=== PATIENT | female | born 1930 | race Caucasian/White ===

== ENCOUNTER 2019-07-15 19:26 | Inpatient (IN) ==
--- NOTE | 2019-07-15 20:23 | PROVIDER DOCUMENTATION ---
This chart was entered by Chaoy Gillette Scribe, acting as scribe for Lang Kelly MD. HPI-Musculoskeletal Pain/Inj - GENERAL Chief Complaint: Fall Stated Complaint: fall Time Seen by Provider: 07/15/19 19:52 Source: patient - HX OF PRESENT ILLNESS-MUSKULOSKELTAL Nature of Presenting Problem: pt is a 88 yr old female presenting via EMS post fall, pt reports she had been riding in backseat of car home from [facility] today, pt reports when she got out of the car she fell, does not know why she fell, denies any dizziness, no LOC, did not strike head. pt admits left hip pain, unable to stand after fall. pt denies any other pain or injury Quality of Pain: reports: throbbing Severity in ED: severe Onset/Duration: just prior to arrival Timing: still present Modifying Factors: improves with: movement (worsens pain), palpation (worsens pain) Any recent injury?: Yes Locality of Occurance: Home Similar Symptoms Previously?: No Recently seen or treated by another doctor?: No - FALL INJURY Location of Pain/Injury: reports: pelvis (left) Pain Radiation: reports: no radiation Reason for Fall: reports: unknown Symptoms prior to fall:: denies: chest pain, dizzy/lightheaded, headache Loss of Consciousness: no loss of consciousness Injury Associated Symptoms: reports: joint pain (left hip), unable to bear weight, trouble walking. denies: back/neck pain, sensory/motor loss, snap/crack/pop sensation - HIP/PELVIS PAIN/INJURY Hip Pain Location: reports: hip (L) Pain Radiation: reports: no radiation Context / Method of Injury: reports: fall Associated Symptoms: reports: denies symptoms Review of Systems - Adult - REVIEW OF SYSTEMS - ADULT Constitutional: reports: no symptoms reported Eyes: reports: no symptoms reported Ears, Nose, Mouth & Throat: reports: no symptoms reported Cardiovascular: denies: chest pain, palpitations, syncope Respiratory: denies: shortness of breath Gastrointestinal: denies: abdominal pain, nausea Genitourinary: reports: no symptoms reported Musculoskeletal: reports: joint pain (left hip). denies: back pain, neck pain Integumentary: reports: no symptoms reported Neurological: denies: dizziness/vertigo, headache/migraines, syncope Psychiatric: reports: no symptoms reported Endocrine: reports: no symptoms reported Hematologic/Lymphatic: reports: no symptoms reported Allergic/Immunologic: reports: no symptoms reported All Other Systems: Reviewed and Negative Past History - Adult - PAST MEDICAL HISTORY-ADULT Review of Records: reports: Old Records Reviewed, Nursing Assessment Review, Medications Reviewed, Social history reviewed & non-contributory. Major Childhood Illnesses: reports: denies history Cardiovascular: reports: HTN, hyperlipidemia Respiratory: reports: denies history Gastrointestinal: reports: denies history Obstetrical/Gynecological: reports: denies history Genitourinary: reports: denies history Musculoskeletal: reports: denies history Neurological: reports: denies history Endocrine/Immune: reports: denies history Other Conditions: reports: denies history - IMMUNIZATION STATUS Childhood Immunizations: See Nurse Assessment Flu Vaccine: See Nurse Assessment - FAMILY HISTORY Family History: reviewed, not pertinent - SOCIAL HISTORY Living Situation: family Physical Exam-Injury Related - Physical Exam-Injury Related Initial Vital Signs Reviewed: Yes General Appearance: alert, no apparent distress Progress - PLAN OF CARE/RESULTS Progress/Plan/Lab Results: Vital Signs - 8 hr 07/15/19 19:38 07/15/19 19:55 Temperature 97.5 F L Pulse Rate 71 72 Respiratory Rate 20 18 Blood Pressure 167/65 167/67 O2 Sat by Pulse Oximetry 100 95 Laboratory Results - last 24 hr 07/15/19 07/15/19 07/15/19 19:53 19:53 19:53 WBC 8.15 RBC 3.66 L Hgb 11.2 L Hct 35.4 L MCV 96.7 MCH 30.6 MCHC 31.6 L RDW Std Deviation 12.6 Plt Count 254 MPV 10.2 Immature Gran % (Auto) 0.2 Neut % (Auto) 51.1 Lymph % (Auto) 39.5 [place] % (Auto) 7.7 Eos % (Auto) 1.3 Baso % (Auto) 0.2 Immature Gran # (Auto) 0.02 Neut # (Auto) 4.15 Lymph # (Auto) 3.22 [place] # (Auto) 0.63 H Eos # (Auto) 0.11 Baso # (Auto) 0.02 PT 13.1 INR 0.98 PTT (Actin FS) 33.2 Sodium 136 Potassium 4.8 Chloride 99 Carbon Dioxide 23 L Anion Gap 14 BUN 25 H Creatinine 1.3 H Estimated GFR/1.73 m2 39 BUN/Creatinine Ratio 19 Glucose 108 H Calculated Osmolality 277 Calcium 10.6 H Total Bilirubin 0.26 AST 22 ALT 17 Alkaline Phosphatase 72 Total Protein 7.4 Albumin 4.4 Globulin 3.0 Albumin/Globulin Ratio 1.5 Orders Category Date Time Status CHEST-PORTABLE [RAD] Stat Exams 07/15/19 20:[address] HEAD W/O CONTRAST [CT] Stat Exams 07/15/19 20:08 Completed LUMBAR SPINE 2-VIEWS [RAD] Stat Exams 07/15/19 20:17 Completed XRAY HIP W/O PELVIS YOSELIN 3-4VWS [RAD] Stat Exams 07/15/19 20:15 Completed CBC WITH ELECTRONIC DIFF [HEME] Stat Lab 07/15/19 19:53 Completed COMPREHENSIVE METABOLIC PANEL [CHEM] Stat Lab 07/15/19 19:53 Completed PROTIME WITH INR [COAG] Stat Lab 07/15/19 19:53 Completed PTT [COAG] Stat Lab 07/15/19 19:53 Completed EKG [EKG] Stat Ther 07/15/19 20:08 Ordered Result Diagrams: 07/15/19 19:53 07/15/19 19:53 - XRAY 1 XRAY Study: Pelvis Impression: Abnormal, See EMR Report 2 XRAY Study: Chest Impression: Normal, See EMR Report - CT/MRI 1 CT Study: Head Impression: Abnormal (Signed EXAM: CT HEAD W/O CONTRAST 07/15/2019 HISTORY: fall TECHNIQUE: This exam was performed using automated exposure control, adjustment of mA or kV according to patient size, and/or use of iterative reconstruction technique. COMMENT: There is no evidence of mass effect, bleed, or abnormal extra-axial fluid collection. There are patchy l ucencies in the white matter of both hemispheres as well as small lacunae present in the basal ganglia region on the right. There are no previous studies available for comparison. Paranasal sinuses are clear. The calvarium is intact. IMPRESSION: Chronic ischemic microvascular changes. No evidence of acute intracranial disease. Electronically signed by Krunal Cardoso 07/15/2019 8:38 PM 07/15/192037 Interpreting Physician: Krunal Cardoso MD Dictated Date/Time: 07/15/192036 cc: Lang Kelly MD; Molly Pappas MD) - CONSULTS/PCP/HOSPITALIST Notification #1 *Consult/PCP/Hospitalist*: Dr Malik Time Discussed: 21:20 Consult Disposition: Admit #2 Consult: Dr Gayle Consult Disposition: Admit Departure - Departure Date of Disposition Decision: 07/15/19 Time of Disposition Decision: 21:16 DIAGNOSIS: Intertrochanteric fracture of left femur Disposition: ADMITTED INPATIENT 09 Certified Medical Emergency: Emergent Condition: Stable Referrals and Follow-Ups: Molly Pappas MD [Primary Care Provider] - - Critical Care Note This patient required my direct & personal management of CC.: No Attestation - Physician/ ROBERTA Attestation Patient care was provided by Advanced Practice Provider:: No The physician spent face to face time with patient:: Yes Advanced Practice Provider documentation review:: Supervising physician onsite and consulted in the evaluation and care of this patient. The physician did have a face to face encounter with the patient. This chart was documented by the indicated scribe, (Chayo Gillette Scribe) and accurately reflects the services I performed and decisions made by me, Lang Kelly MD, as attested by the provider's signature.
[2019-07-15 20:40] LABS: BASO# 0.02 X1000 (0.0-0.2); BASO% 0.2 % (0.0-0.8); EOS# 0.11 X1000 (0.0-0.7); EOS% 1.3 % (0.0-10.0); HEMATOCRIT 35.4 % (37.0-47.0); HEMOGLOBIN 11.2 g/dL (12.0-16.0); IMM GRAN# 0.02 X1000 (0.0-0.04); IMM GRAN% 0.2 % (0.0-0.5); LYMPH# 3.22 X1000 (1.2-3.4); LYMPH% 39.5 % (20.5-51.1); MCH 30.6 PG (27-31); MCHC 31.6 g/dL (33-37); MCV 96.7 FL (81-99); MONO# 0.63 X1000 (0.11-0.59); MONO% 7.7 % (1.7-9.3); MPV 10.2 FL (7.4-10.4); NEUT# 4.15 X1000 (1.4-6.5); NEUT% 51.1 % (42.2-75.2); PLT 254 X1000 (130-400); RBC 3.66 XMIL (4.2-5.4); RDW 12.6 % (11.5-14.5); WBC 8.15 X1000 (4.8-10.8)
--- NOTE | 2019-07-15 20:40 | Diag Imaging Result Doc PS360 ---
EXAM: CT HEAD W/O CONTRAST 07/15/2019 HISTORY: fall TECHNIQUE: This exam was performed using automated exposure control, adjustment of mA or kV according to patient size, and/or use of iterative reconstruction technique. COMMENT: There is no evidence of mass effect, bleed, or abnormal extra-axial fluid collection. There are patchy lucencies in the white matter of both hemispheres as well as small lacunae present in the basal ganglia region on the right. There are no previous studies available for comparison. Paranasal sinuses are clear. The calvarium is intact. IMPRESSION: Chronic ischemic microvascular changes. No evidence of acute intracranial disease. Electronically signed by Krunal Cardoso 07/15/2019 8:38 PM
[2019-07-15 20:47] LABS: INR 0.98; PROTIME 13.1 Seconds (11.0-16.0)
[2019-07-15 20:48] LABS: PTT 33.2 Seconds (22.3-41.8)
[2019-07-15 20:55] LABS: ALB/GLOB RATIO 1.5; ALBUMIN 4.4 g/dL (3.5-5.0); CALCIUM 10.6 mg/dL (8.8-10.2); CREATININE 1.3 mg/dL (0.5-0.9); POTASSIUM 4.8 mmol/L (3.5-5.1); TOTAL BILIRUBIN 0.26 mg/dL (0.20-1.00); TOTAL PROTEIN 7.4 g/dL (6.3-8.3)
--- NOTE | 2019-07-15 20:59 | Diag Imaging Result Doc PS360 ---
EXAM: XRAY HIP W/O PELVIS YOSELIN 3-4VWS 07/15/2019 HISTORY: fall TECHNIQUE: Four views COMMENT: There is some joint space narrowing and marked osteophyte formation in the femoral heads. Bone on bone contact is present laterally on the left. There is an apparent intertrochanteric fracture on the left. There is generalized osteopenia. There are severe degenerative disc changes at L4-5 and L5-S1. IMPRESSION: Left intertrochanteric fracture. 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 Electronically signed by Krunal Cardoso 07/15/2019 8:57 PM
--- NOTE | 2019-07-15 21:01 | Diag Imaging Result Doc PS360 ---
EXAM: CHEST-PORTABLE 07/15/2019 HISTORY: fall TECHNIQUE: AP portable at 2040 COMMENT: There is severe degenerative disc disease and scoliosis of the thoracolumbar spine with convexity to the left. There are calcified granulomata bilaterally. There is no evidence of acute pulmonary disease and compared to the previous study of 06/26/2016 considering differences in inspiration and technique there has been no significant change. IMPRESSION: No acute disease. Electronically signed by Krunal Cardoso 07/15/2019 8:59 PM
--- NOTE | 2019-07-15 21:03 | Diag Imaging Result Doc PS360 ---
EXAM: LUMBAR SPINE 2-VIEWS 07/15/2019 HISTORY: fall TECHNIQUE: Lumbosacral spine AP and lateral COMMENT: There is severe rotoscoliosis with degenerative disc changes at the thoracolumbar transition and convexity to the left. There is also severe degenerative disc disease at L4-5 and L5-S1. There is mild anterolisthesis of L4 on L5 which is presumably due to facet arthropathy. There is generalized osteopenia. There are no previous studies. IMPRESSION: Degenerative disc disease and scoliosis. No evidence of acute bony abnormality. Electronically signed by Krunal Cardoso 07/15/2019 9:01 PM
[2019-07-15] MEDS ORDERED: ZOFRAN IV ONE ×2 (21:42→22:35)
[2019-07-15] MEDS ORDERED: DILAUDID IV ONE (21:42)
--- NOTE | 2019-07-15 23:02 | HISTORY AND PHYSICAL ---
PRIMARY CARE PHYSICIAN: Dr. Pappas. CHIEF COMPLAINT: Fall. HISTORY OF PRESENTING ILLNESS: An 88-year-old female with a history of diabetes mellitus type 2, hypertension, hyperlipidemia and hypothyroidism. She was coming back from [place], and when she got to her garage she got out, and somehow she got weak and landed on the concrete, on her left hip region. She was brought to the emergency department. She had imaging done which did show a left intertrochanteric fracture. Her case was discussed with Orthopedics, who recommended admission for further management. At the time of my examination, the patient denied any headache, fever, chills, chest pain, shortness of breath, hemoptysis or melena, but complained of left hip pain. PAST MEDICAL HISTORY: Includes diabetes mellitus type 2, hypertension, hyperlipidemia, hypothyroidism and asthma. PAST SURGICAL HISTORY: Exploratory laparotomy, appendectomy, cataract surgery. ALLERGIES: Penicillin and Keflex. CURRENT MEDICATIONS: Levothyroxine 100 mcg p.o. daily; losartan 50 mg p.o. daily; metformin 500 mg p.o. daily; lovastatin 20 mg p.o. daily. SOCIAL HISTORY: No history of smoking, alcohol or illicit drug use. FAMILY HISTORY: Positive for coronary disease in her father. REVIEW OF SYSTEMS: Fourteen-point review of system is as listed in HPI. Other systems negative. PHYSICAL EXAMINATION: GENERAL: Cooperative, friendly elderly female. She is resting more comfortably now. VITAL SIGNS: Temperature 97.5 degrees, pulse 72, respirations 18, blood pressure 167/67. HEENT: Extraocular movements intact. PERRLA. NECK: No masses. CHEST: Clear to auscultation. CARDIOVASCULAR: Regular rate and rhythm. ABDOMEN: Soft. Positive bowel sounds. EXTREMITIES: Left hip region tenderness. NEUROLOGIC: She is awake, alert and oriented x2. GENITOURINARY: No bladder distention. SKIN: Warm. LABORATORY DATA: WBCs 8.15, hemoglobin 11.2, hematocrit 35.4, platelets 254,000. Sodium 136, potassium 4.8, chloride 99, CO2 is 23, BUN is 25, creatinine is 1.3, glucose 108. DIAGNOSTIC DATA: Hip x-ray shows left intertrochanteric fracture. ASSESSMENT: An 88-year-old female with a history of diabetes mellitus type 2, hypertension, hyperlipidemia and hypothyroidism. She presented to the emergency department with a 1-day history of having left hip region pain after a fall. She was evaluated in the emergency department. She had imaging done which did show a left intertrochanteric fracture. Subsequently, she will need admission for further management. 1. Status post a mechanical fall. 2. Left hip intertrochanteric fracture. 3. Diabetes mellitus type 2. 4. Hypertension. 5. Hypothyroidism. PLAN: 1. We will admit the patient to the medical floor with telemetry. 2. We will keep the patient NPO. Continue with pain control and antiemetics as needed. 3. Orthopedics has already been consulted. 4. We will monitor blood glucose and put the patient on sliding scale insulin regimen. 5. Monitor blood pressure. Resume antihypertensive agents. 6. Put the patient on DVT prophylaxis with SCDs. 7. We will continue to follow and reassess, and make further recommendations based on the patient's clinical course. cc: Ti Malik MD
[2019-07-16] MEDS: DILAUDID IV PRN ×3 (00:58→09:12)
[2019-07-16] MEDS: ZOFRAN IV PRN ×3 (00:58→20:58)
[2019-07-16] MEDS: NS 1,000 ML IV SCH (01:12)
--- NOTE | 2019-07-16 01:36 | EKG Report ---
Test Performed on : 07/16/2019 01:28:17 AM Test Reason : fall Blood Pressure : / mmHG Vent. Rate : 061 BPM Atrial Rate : 061 BPM P-R Int : 134 ms QRS Dur : 082 ms QT Int : 432 ms P-R-T Axes : 061 -03 050 degrees QTc Int : 434 ms Normal sinus rhythm. Normal ECG When compared with ECG of 26-JUN-2016 18:21, No significant change was found Unconfirmed Result
[2019-07-16 06:43] LABS: URINE SOURCE CATH
[2019-07-16 06:46] LABS: BILIRUBIN URINE NEGATIVE (NEGATIVE); BLOOD URINE SMALL (NEGATIVE); COLOR YELLOW; GLUCOSE URINE NEGATIVE (NEGATIVE); KETONE URINE NEGATIVE (NEGATIVE); LEUKOCYTES URINE SMALL (NEGATIVE); NITRITE URINE NEGATIVE (NEGATIVE); PH URINE 6.5; PROTEIN URINE TRACE mg/dL (NEGATIVE); SP GRAVITY URINE 1.014; TURBIDITY URINE CLEAR (CLEAR); UR EPITHELIAL CELLS <10 /HPF (<10); URINE BACTERIA NEGATIVE /HPF; URINE RBC 20-40 /HPF (<10); URINE WBC <10 /HPF (<10); UROBILINOGEN URINE NORMAL (NORMAL)
--- NOTE | 2019-07-16 06:48 | Diag Imaging Result Doc PS360 ---
CT PELVIS W/O CONTRAST - 07/15/2019 INDICATION: Left hip fracture COMPARISON: X-rays from earlier 07/15/2019 FINDINGS: There is a nondisplaced left intertrochanteric hip fracture. There is severe bilateral hip osteoarthritis. No dislocation. There is advanced degeneration of the lower lumbar spine. IMPRESSION: Acute nondisplaced left intertrochanteric hip fracture. This exam was performed using automated exposure control, adjustment of mA or kV according to patient size, and/or use of iterative reconstruction technique Electronically signed by Sreedhar Bellamy 07/16/2019 6:46 AM
[2019-07-16] MEDS ORDERED: CLINDAMYCIN 600 MG/NS 600 MG/50 ML IVPB IV ONE (06:52)
[2019-07-16] MEDS ORDERED: CLINDAMYCIN 600 MG/D5W 600 MG/50 ML IVPB IV ONE (07:05)
[2019-07-16 07:16] LABS: BASO# 0.02 X1000 (0.0-0.2); BASO% 0.2 % (0.0-0.8); EOS# 0.01 X1000 (0.0-0.7); EOS% 0.1 % (0.0-10.0); HEMATOCRIT 33.3 % (37.0-47.0); HEMOGLOBIN 10.8 g/dL (12.0-16.0); IMM GRAN# 0.02 X1000 (0.0-0.04); IMM GRAN% 0.2 % (0.0-0.5); LYMPH# 1.21 X1000 (1.2-3.4); LYMPH% 9.5 % (20.5-51.1); MCH 31.3 PG (27-31); MCHC 32.4 g/dL (33-37); MCV 96.5 FL (81-99); MONO# 0.69 X1000 (0.11-0.59); MONO% 5.4 % (1.7-9.3); MPV 10.2 FL (7.4-10.4); NEUT# 10.74 X1000 (1.4-6.5); NEUT% 84.6 % (42.2-75.2); PLT 213 X1000 (130-400); RBC 3.45 XMIL (4.2-5.4); RDW 12.4 % (11.5-14.5); WBC 12.69 X1000 (4.8-10.8)
[2019-07-16] MEDS: HUMULIN R SUBQ SCH ×4 (08:04→23:54)
[2019-07-16] MEDS: BREO ELLIPTA 100/25 MCG INH INH SCH (10:54)
[2019-07-16] MEDS ORDERED: DIPRIVAN 1% ONE (13:07)
[2019-07-16] MEDS ORDERED: ROBINUL ONE (13:08)
[2019-07-16] MEDS ORDERED: FENTANYL ONE (13:08)
[2019-07-16] MEDS ORDERED: XYLOCAINE-MPF 2% ONE (13:08)
[2019-07-16] MEDS ORDERED: NEO-SYNEPHRINE ONE (13:14)
--- NOTE | 2019-07-16 13:28 | ORTHOPAEDICS CONSULTATION ---
DATE: 07/16/2019 CHIEF COMPLAINT: Left hip pain after a fall. HISTORY OF PRESENTING ILLNESS: Ms. Damon is an 88-year-old female with a past medical history of diabetes mellitus type 2, hypertension, hyperlipidemia, and hypothyroidism, who was getting out of her car yesterday when she tripped and fell. She had pain to the left hip. She denied dizziness, lightheadedness, or loss of consciousness. She denies pain in any other extremity. She was brought to the emergency department at that time. X-rays done in the ER showed a left intertrochanteric fracture. Orthopedics was consulted for management of the fracture. PAST MEDICAL HISTORY: 1. Diabetes mellitus type 2. 2. Primary essential hypertension. 3. Hyperlipidemia. 4. Hypothyroidism. 5. Asthma. PAST SURGICAL HISTORY: 1. Exploratory laparotomy. 2. Appendectomy. 3. Cataract surgery. ALLERGIES: 1. Penicillin. 2. Keflex. CURRENT MEDICATIONS: 1. Synthroid 100 mcg p.o. daily. 2. Losartan 50 mg p.o. daily. 3. Metformin 500 mg p.o. daily. 4. Lovastatin 20 mg p.o. daily. SOCIAL HISTORY: Denies tobacco, alcohol, or illicit drug use. She does still live a home alone. She is still very active. She is a retired RN. FAMILY HISTORY: Noncontributory. REVIEW OF SYSTEMS: A 10-point review of systems was conducted and negative except what is mentioned above in the HPI. PHYSICAL EXAMINATION: Current Vital Signs: Her temperature is 98.6 degrees, her pulse is 71, respirations are 18, and blood pressure is 125/50, and she is 95% on room air. General: This is a very pleasant 88-year-old female in no acute distress. Neurological: She is alert and oriented x3 with no focal deficits. HEENT: Head is atraumatic, normocephalic. Pupils are equal, round, reactive to light. Cardiovascular: Regular rate and rhythm. Breathing is even and nonlabored. Equal chest expansion. Abdomen: Appears nondistended. Extremities: The left lower extremity is short and externally rotated. She does have good sensation to the foot. She has a 2+ pedal pulse. She has a cap refill of less than 2 seconds. She is able to dorsi and plantar flex the foot. She has no skin abrasions or ulcerations. She denies tenderness to any other extremity. LABORATORY DATA: Her white count is 8.15. Her hemoglobin is 11.2, hematocrit 35.4, platelets 254,000. Her sodium is 136, her potassium is 4.8. Her BUN is 25 and creatinine is 1.3. DIAGNOSTIC DATA: A hip film reviewed, interpreted by Dr. Gayle, does show a left intertrochanteric femur fracture that is nondisplaced. ASSESSMENT: Left intertrochanteric femur fracture. PLAN: We will plan for a trochanteric femoral nailing of this left hip today. We have discussed the procedure in depth with the patient. We have also discussed mortality rates of hip fractures in elderly population. She is a retired RN and understands. Her daughter is at the bedside. The risks and benefits of the procedure that were reviewed by Dr. Gayle are damage to nerves, arteries, veins, malunion, nonunion, hardware related issues, DVT, infection, poor wound healing, continued pain, and risk of general anesthesia. The patient understands and wished to proceed. She has been NPO since midnight. We will get consent signed today. We will plan on her doing at least a 21 day rehab stay as she lives at home alone. She is in agreement with this and thinks it is a good idea. We have also discussed osteoporosis medication postoperatively. She states Dr. Pappas, her primary care doctor, has prescribed her a medication for osteoporosis that she cannot recall the name. She has not started that yet. We will discuss this more postoperatively. We will plan to get this done today. Dictated by LAMONT Finney for Red Gayle MD cc: LAMONT Finney MD
[2019-07-16] MEDS ORDERED: D50W SYRINGE ONE (13:49)
[2019-07-16] MEDS ORDERED: KETAMINE ONE (14:35)
[2019-07-16] MEDS ORDERED: CALMOSEPTINE OINTMENT TOP PRN (14:49)
[2019-07-16] MEDS ORDERED: MARCAINE 0.5% PF ONE (15:00)
[2019-07-16] MEDS ORDERED: MORPHINE IV PRN (15:32)
[2019-07-16] MEDS ORDERED: ZOFRAN IV PRN (15:32)
[2019-07-16] MEDS ORDERED: MILK OF MAGNESIA PO PRN (15:32)
[2019-07-16] MEDS ORDERED: HALDOL IV PRN (15:32)
[2019-07-16] MEDS: TYLENOL PO SCH (19:46)
--- NOTE | 2019-07-16 21:11 | OPERATIVE NOTE ---
PROCEDURE DATE: 07/16/2019 PREOPERATIVE DIAGNOSIS: Left intertrochanteric femur fracture. POSTOPERATIVE DIAGNOSIS: Left intertrochanteric femur fracture. PROCEDURE: Closed reduction and intramedullary nailing of left intertrochanteric femur fracture. SURGEON: Red Gayle MD. BLOOD BANK BUSINESS MANAGER: Diana Neal, nurse practitioner, whose assistance was needed for reduction, retraction, and placement of implants. ANESTHESIA: Spinal anesthetic was attempted. However, they were unable to get it secondary to the patient's arthritis. General endotracheal anesthesia was thus used. COMPLICATIONS: None. SPECIMENS: None. DRAINS: None. BLOOD LOSS: 50 mL. IMPLANTS: Synthes TFN left-sided femoral head nail measuring 11 mm x 340 mm with an 80 mm helical blade and a 34 mm distal screw. INDICATIONS FOR PROCEDURE: Ms. Damon is an 88-year-old lady who presented to [facility] after sustaining a same-level fall. X-rays demonstrated an intertrochanteric femur fracture. Given these findings, Orthopedics was consulted. Given the fracture pattern, it was decided patient would best benefit from closed reduction and intramedullary nailing. Risks, benefits, alternative therapies were discussed with patient and family regarding surgery. Risks of surgery include, but are not limited to, risks of bleeding, infection, damage to nerves and vessels around the area, continued pain following surgery, malunion, nonunion, need for revision surgery. There is also a risk of anesthesia including blood clot, stroke, heart attack, even . The patient understands these risks. All questions were answered. Informed consent was obtained. PROCEDURE IN DETAIL: Ms. Damon was identified by wristband and greeted in preoperative holding area on 07/16/2019. Her left lower extremity which was the operative site was then marked with indelible ink per [facility] Sign Your Site protocol. Following this, the patient was transferred back to the operating room for surgery. Upon entering the OR, spinal anesthetic was attempted. However, they were unable to get this. The patient was thus intubated and general endotracheal anesthesia was used. Following this, she was transferred over to a [place] table in supine position. All bony prominences were well padded. Both feet were placed into well-padded boot holders on the [place] table. Fluoroscopy was then brought in confirming reduction of the fracture. Once this was done, left lower extremity was prepped and draped in routine sterile fashion. Formal time-out was performed confirming correct patient, procedure, operative site, operative side, administration of preoperative antibiotics. Everyone was in agreement. Patient received clindamycin prior to incision. A 10-blade knife was used to make a standard 3 cm longitudinal incision about 2 cm proximal to the greater trochanter. Knife was used to dissect through skin, subcutaneous fat, and fascia. The tip of the greater trochanter was then palpated. At this time, a guidewire was placed and we were satisfied with the starting point on both AP and lateral views. It was taken down to the level of the lesser trochanter. The entry reamer was then used to enter the canal. Once this was done, a ball-tipped guidewire was placed through the femur distally down to the knee. AP and lateral images of the knee were taken confirming good center-center placement of the wire. A measuring device was then used to measure the length of the nail, which was found to be 340 mm. At this time, we then proceeded with reaming the canal using a 12 mm reamer. A Synthes 11 x 340 mm TFN nail was then opened and assembled on the back table. The nail was then driven down in routine fashion. Once it was appropriately seated, our second, more distal incision was made using knife through skin, subcutaneous fat, and ITB band. The cannula for the cephalomedullary screw was then inserted and locked into position. At this time, we then drilled the guidewire up the femoral head. AP and lateral images were used to localize the wire and confirm its placement center- center in the head. When we were satisfied with the placement of this, it was then driven up to the subchondral bone and measured, which was found to be 87 mm. An 80 mm blade was thus opened. A drill was used to ream the lateral cortex. An 80 mm helical blade was then inserted in routine fashion. Once this was done, compression device was used to obtain some compression to help with reduction of the fracture. When we were satisfied with this, the locking screw was then taken down all the way and loosened half a turn to allow for dynamic compression. At this time, the aiming arm was removed and we turned our attention distally for perfect [place] technique to place 1 distal interlocking screw. A knife was used to make a poke hole incision on the lateral aspect of the distal femur and a single interlocking screw was placed in routine fashion. Once this was done, final AP and lateral images of the hip and knee were obtained confirming anatomic reduction of the fracture with good placement of the implants. At this time, all wounds were copiously irrigated with normal saline, and 2-0 Vicryl suture was used for subcutaneous tissue closure, followed by mike for skin closure. Wounds were then dressed with Xeroform, 4 x 4, and Telfa island dressing. All sponge and sharp counts were correct at the conclusion of the procedure. Next, 30 mL of 0.5% Marcaine plain was then injected around all incision sites. At this time, the patient was transferred over to hospital bed, extubated, and taken to Recovery in stable condition. There were no acute complications during the procedure. cc: Estuardo Pappas MD
--- NOTE | 2019-07-16 22:28 | PROGRESS NOTE ---
DATE: 07/16/2019 SUBJECTIVE: An 88-year-old white female who was admitted to the hospital last night 07/15/2019, after a fall at home, sustaining injury to the left side of the hip. REVIEW OF SYSTEMS: Pain is adequately controlled. Events were noted. Family was at bedside. PAST MEDICAL HISTORY: Reviewed. PAST SURGICAL HISTORY: Reviewed. MEDICINES: Reviewed. ALLERGIES: Cephalexin, penicillin. OBJECTIVE: Temperature is 98 degrees. Vital signs are stable. HEENT exam within normal limits. Neck is supple. Chest is clear. Heart sounds are regular. Belly is soft, nontender. Left lower extremity did not rotate externally. No shortening noted. Neurologic exam nonfocal. LABORATORY DATA: White cell count 12.6, hematocrit 33, platelets 213,000. SMA 12 is normal. Urinalysis is clear. DIAGNOSTIC DATA: Pelvic CT findings were acute nondisplaced left intertrochanteric fracture. Lumbar spine x-ray: DJD changes, scoliosis. No evidence of acute bony abnormality. Hip x-ray: Left intertrochanteric fracture; osteoporosis. CT head: Chronic microvascular ischemic changes. EKG: Normal sinus, nothing acute. ASSESSMENT: 1. Left intertrochanteric fracture, waiting for nailing. Appreciated Orthopedics consult consulting practice director. 2. History of diabetes. 3. Hypertension. 4. Hypothyroidism. PLAN OF CARE: Waiting for surgery. IV fluids, pain control. Discussed with the family at bedside, and family is requesting to go for rehab. After surgery we will slowly restart her home medications. Level of documentation 35 minutes. cc: Estuardo Pappas MD
[2019-07-16] MEDS: PERIDEX MT SCH (22:30)
[2019-07-16] MEDS: COLACE PO SCH (22:30)
[2019-07-17] MEDS: NS 1,000 ML IV SCH (00:18)
[2019-07-17] MEDS: TYLENOL PO SCH ×3 (00:19→19:33)
[2019-07-17 06:30] LABS: BASO# 0.04 X1000 (0.0-0.2); BASO% 0.3 % (0.0-0.8); EOS# 0.26 X1000 (0.0-0.7); EOS% 2.2 % (0.0-10.0); HEMATOCRIT 31.5 % (37.0-47.0); HEMOGLOBIN 10.1 g/dL (12.0-16.0); IMM GRAN# 0.03 X1000 (0.0-0.04); IMM GRAN% 0.3 % (0.0-0.5); LYMPH# 1.15 X1000 (1.2-3.4); LYMPH% 9.8 % (20.5-51.1); MCH 31.1 PG (27-31); MCHC 32.1 g/dL (33-37); MCV 96.9 FL (81-99); MONO# 0.69 X1000 (0.11-0.59); MONO% 5.9 % (1.7-9.3); MPV 10.5 FL (7.4-10.4); NEUT# 9.61 X1000 (1.4-6.5); NEUT% 81.5 % (42.2-75.2); PLT 175 X1000 (130-400); RBC 3.25 XMIL (4.2-5.4); RDW 12.9 % (11.5-14.5); WBC 11.78 X1000 (4.8-10.8)
[2019-07-17 06:59] LABS: CALCIUM 8.8 mg/dL (8.8-10.2); CREATININE 1.2 mg/dL (0.5-0.9); POTASSIUM 5.1 mmol/L (3.5-5.1)
[2019-07-17] MEDS: OXY IR PO PRN ×2 (07:30→21:08)
[2019-07-17] MEDS: BREO ELLIPTA 100/25 MCG INH INH SCH (07:51)
[2019-07-17] MEDS: HUMULIN R SUBQ SCH ×4 (07:55→21:34)
[2019-07-17] MEDS: FERROUS SULFATE PO SCH (08:14)
[2019-07-17] MEDS: PERIDEX MT SCH ×2 (08:14→20:09)
[2019-07-17] MEDS ORDERED: NS 250 ML IV ONE (12:31)
[2019-07-17 17:40] LABS: BASO# 0.04 X1000 (0.0-0.2); BASO% 0.3 % (0.0-0.8); EOS# 0.35 X1000 (0.0-0.7); EOS% 2.6 % (0.0-10.0); HEMATOCRIT 32.5 % (37.0-47.0); HEMOGLOBIN 10.3 g/dL (12.0-16.0); IMM GRAN# 0.03 X1000 (0.0-0.04); IMM GRAN% 0.2 % (0.0-0.5); LYMPH# 1.79 X1000 (1.2-3.4); LYMPH% 13.4 % (20.5-51.1); MCH 31.9 PG (27-31); MCHC 31.7 g/dL (33-37); MCV 100.6 FL (81-99); MONO# 0.68 X1000 (0.11-0.59); MONO% 5.1 % (1.7-9.3); MPV 10.4 FL (7.4-10.4); NEUT# 10.43 X1000 (1.4-6.5); NEUT% 78.4 % (42.2-75.2); PLT 173 X1000 (130-400); RBC 3.23 XMIL (4.2-5.4); RDW 13.2 % (11.5-14.5); WBC 13.32 X1000 (4.8-10.8)
--- NOTE | 2019-07-17 17:45 | PROGRESS NOTE ---
DATE: 07/17/2019 SUBJECTIVE: Apparently, nurses called me, blood pressure is dropping, had a left hip nail done. The patient is eating breakfast. She is symptomatic. The patient was given bolus 250 mL of normal saline. I did check the blood pressure on both arms, 70/60. OBJECTIVE: Temperature is 98.2 degrees, pulse 93.HEENT: Within normal limits. Neck: Supple. Chest: Bilateral air entry. Heart sounds regular. Belly is soft, nontender. No obvious deficits. LABORATORY DATA: White cell count 11.7, hematocrit 31.5, platelet 175,000. Sodium 134, potassium 5.1, BUN 20, creatinine 1.2, glucose 170, calcium 8.8, prealbumin 9.3. Urine cultures are negative. ASSESSMENT AND PLAN: 1. Left hip nondisplaced intertrochanteric fracture, status post intramedullary nailing. Complicated by hypotension. Currently, receiving IV fluids, very judicious use of boluses. Repeat the CBC, SMA 7 in the evening. 2. Type 2 diabetes and hypertension. We will hold the medications and will continue to monitor the blood pressure. The patient's family is willing to go to rehab. 3. Hypothyroidism. On Synthroid. No signs of active GI bleeding noted. LEVEL OF DOCUMENTATION: 35 minutes. cc: Estuardo Pappas MD
[2019-07-17 17:56] LABS: CALCIUM 8.6 mg/dL (8.8-10.2); CREATININE 1.4 mg/dL (0.5-0.9); POTASSIUM 4.7 mmol/L (3.5-5.1)
--- NOTE | 2019-07-17 18:17 | ORTHOPAEDICS PROGRESS NOTE ---
DATE: 07/17/2019 SUBJECTIVE: Jackie Damon is an 88-year-old female, postoperative day one, from a TFN on the left. She has no new complaints. OBJECTIVE: She is alert, oriented, and cooperative with exam. Her leg is neurovascularly intact. Her dressing is clean, dry, intact. ASSESSMENT: Stable left trochanteric fixation nail. PLAN: Will continue working with physical therapy. She will likely go to rehab the first part of the week. cc: MD Estuardo Alvarez MD
[2019-07-17] MEDS: COLACE PO SCH (20:09)
[2019-07-18] MEDS: TYLENOL PO SCH ×3 (01:18→17:37)
[2019-07-18] MEDS: OXY IR PO PRN ×2 (04:35→22:10)
[2019-07-18] MEDS: SYNTHROID PO SCH (06:33)
[2019-07-18] MEDS: HUMULIN R SUBQ SCH ×5 (07:11→20:33)
[2019-07-18 07:22] LABS: HEMOGLOBIN 8.7 g/dL (12.0-16.0)
[2019-07-18] MEDS: BREO ELLIPTA 100/25 MCG INH INH SCH (07:42)
[2019-07-18] MEDS: PERIDEX MT SCH ×2 (09:39→20:30)
[2019-07-18] MEDS: FERROUS SULFATE PO SCH (09:39)
--- NOTE | 2019-07-18 09:52 | ORTHOPAEDICS PROGRESS NOTE ---
DATE: 07/18/2019 SUBJECTIVE: Jackie Damon is an 88-year-old female with a left intertrochanteric hip fracture, status post closed reduction intramedullary nailing by Dr. Gayle. She has no complaints, except for continued pain in her leg. OBJECTIVE: She is a well-developed, well-nourished female. She is alert and cooperative with exam. Her hematocrit is 27. Her wounds are clean, dry, and intact without sign of infection. ASSESSMENT: Stable left trochanteric fixation nail. PLAN: We will continue working with Physical Therapy. She will likely go to rehab tomorrow. cc: MD Estuardo Alvarez MD
[2019-07-18] MEDS ORDERED: NS 500 ML IV SCH (14:00)
--- NOTE | 2019-07-18 15:40 | PROGRESS NOTE ---
DATE: 07/18/2019 SUBJECTIVE: The patient has some dizzy spells while doing a PT. Blood pressure is dropping, tachycardic. IV fluids 88 mL/h. The patient is not receiving any blood pressure medicine. Rest of review of systems are normal. The patient denies any chest pain, palpitations. PHYSICAL EXAMINATION: Vitals: Temperature is 98.3, pulse 86. Blood pressure is a little bit orthostatic. HEENT: Slightly pale. Neck: Supple. Chest: Clear. Heart: Sounds are regular. Abdomen: Belly is soft, nontender. No obvious deficits. INVESTIGATIONS: Hematocrit dropped to 27. Creatinine is 1.4. Prealbumin 9.3. ASSESSMENT AND PLAN: 1. Status post day 3 left hip nailing. 2. Orthostatic hypotension. 3. Anemia. 4. Diabetes. PLAN OF CARE: 1. Transfuse a unit of blood. 2. Sliding scale with insulin coverage. 3. Discontinue Morrissey. 4. Repeat the CBC, SMA 7 in the morning. 5. Will hold off to discharge tomorrow once she is hemodynamically stable, and patient wants to go for rehab in [facility]. LEVEL OF DOCUMENTATION: 25 minutes. cc: Estuardo Pappas MD
[2019-07-18] MEDS: COLACE PO SCH ×2 (20:30→20:34)
[2019-07-19] MEDS: TYLENOL PO SCH ×4 (01:13→20:49)
[2019-07-19] MEDS: SYNTHROID PO SCH (06:04)
[2019-07-19] MEDS: HUMULIN R SUBQ SCH ×4 (06:47→21:05)
[2019-07-19 07:01] LABS: BASO# 0.03 X1000 (0.0-0.2); BASO% 0.4 % (0.0-0.8); EOS# 0.72 X1000 (0.0-0.7); HEMOGLOBIN 9.7 g/dL (12.0-16.0); LYMPH# 1.56 X1000 (1.2-3.4); LYMPH% 21.7 % (20.5-51.1); MCH 30.6 PG (27-31); MCHC 32.3 g/dL (33-37); MCV 94.6 FL (81-99); MONO# 0.64 X1000 (0.11-0.59); MONO% 8.9 % (1.7-9.3); MPV 10.7 FL (7.4-10.4); NEUT# 4.25 X1000 (1.4-6.5); PLT 135 X1000 (130-400); RBC 3.17 XMIL (4.2-5.4); RDW 13.9 % (11.5-14.5)
[2019-07-19 07:26] LABS: ALB/GLOB RATIO 1.3; CALCIUM 8.2 mg/dL (8.8-10.2); CREATININE 1.2 mg/dL (0.5-0.9); POTASSIUM 4.5 mmol/L (3.5-5.1); TOTAL BILIRUBIN 0.44 mg/dL (0.20-1.00); TOTAL PROTEIN 5.3 g/dL (6.3-8.3)
[2019-07-19] MEDS: FERROUS SULFATE PO SCH (10:14)
[2019-07-19] MEDS: OXY IR PO PRN (10:14)
[2019-07-19] MEDS: PERIDEX MT SCH ×2 (10:15→20:49)
--- NOTE | 2019-07-19 10:40 | Diag Imaging Result Doc PS360 ---
XRAY PELVIS W/HIP 2-3VW LT - 07/19/2019 INDICATION: Post-Op TECHNIQUE: Four views COMPARISON: 07/15/2019 FINDINGS: There has been placement of a left femoral neck stabilization joanna. There is an intertrochanteric fracture of the left hip. Alignment is anatomic. No hardware fracture or loosening. IMPRESSION: No complication. Electronically signed by Sreedhar Bellamy 07/19/2019 10:38 AM
[2019-07-19] MEDS: BREO ELLIPTA 100/25 MCG INH INH SCH (11:00)
--- NOTE | 2019-07-19 19:09 | ORTHOPAEDICS PROGRESS NOTE ---
DATE: 07/19/2019 SUBJECTIVE: No acute events overnight. Patient is doing well. Her blood pressure seems to have stabilized. She was transferred transfused 1 unit of blood over the weekend and her hematocrit today is 30, which has responded appropriately. She ambulated with physical therapy very well today. She states the pain in her hip is much improved. She is tolerating a diet. She is planning on going to [facility] tomorrow. OBJECTIVE: Hematocrit is 30. Examination of the left lower extremity shows surgical incisions to be clean, dry, intact. Salma in place. No erythema or sign of infection. Thighs and calf are soft and compressible. No pain with log roll of the hip. Motor intact to EHL, tibialis anterior, gastrocsoleus complex. Sensation intact to light touch L3 through S1. Dorsalis pedis pulse palpable. ASSESSMENT: An 88-year-old female, status post Shaina left intertrochanteric fracture, postoperative day number 3. There. PLAN: 1. Weightbearing as tolerated to the left lower extremity. Physical therapy to mobilize and work on gait training. 2. Lovenox for DVT prophylaxis. 3. Ice left lower extremity as needed for pain. 4. Appreciate medicine reconciliation. 5. Disposition per primary team. Patient is planning on being discharged to [facility] on tomorrow. She can follow up with me in the office in 10 to 14 days for staple removal and serial x-rays. cc: Estuardo Pappas MD
[2019-07-19] MEDS: COLACE PO SCH (20:48)
--- NOTE | 2019-07-19 21:20 | PROGRESS NOTE ---
DATE: 07/19/2019 SUBJECTIVE: The patient is a little better status post 1 unit of packed RBC and blood pressure is coming up. Slightly dizzy. REVIEW OF SYSTEMS: None reported. EXAM: Temperature is 98, pulse 92, blood pressure 129/65, 2 L nasal cannula 96%.HEENT: Within normal limits. Neck: Supple. Chest: Clear. Heart: Sounds are regular. Abdomen: Belly is soft, nontender. Neurologic: No obvious deficits. INVESTIGATIONS: CBC: White cell count 7.2, hematocrit 30, platelets 135,000. Sodium 133, potassium 4.5, BUN 24, creatinine 1.2, glucose 115. LFTs were normal. Urine cultures are negative. ASSESSMENT AND PLAN: 1. Status post left hip nailing. 2. Orthostatic hypotension status post a unit of packed red blood cells. Morrissey was out. If she is stable orthostatic, we will discharge to rehab. 3. Hypothyroidism, on Synthroid. 4. Continue to hold on blood pressure medicine. 5. [facility] Technician was consulted for rehab placement. LEVEL OF DOCUMENTATION: 25 minutes. cc: Estuardo Pappas MD
[2019-07-20] MEDS: TYLENOL PO SCH ×2 (06:18→08:39)
[2019-07-20] MEDS: SYNTHROID PO SCH (06:52)
[2019-07-20] MEDS: HUMULIN R SUBQ SCH (07:37)
[2019-07-20] MEDS: BREO ELLIPTA 100/25 MCG INH INH SCH (07:57)
[2019-07-20 08:13] VITALS: BP 150/72
[2019-07-20] MEDS: FERROUS SULFATE PO SCH (08:39)
[2019-07-20] MEDS: PERIDEX MT SCH (08:40)
--- NOTE | 2019-07-20 08:49 | DISCHARGE SUMMARY ---
ADMISSION DATE: 07/15/2019 DISCHARGE DATE: 07/20/2019 DISCHARGING DIAGNOSIS: Left hip fracture, nondisplaced, intertrochanteric. SECONDARY DIAGNOSES: 1. Type 2 diabetes. 2. Hypertension. 3. Hyperlipidemia. 4. Hypothyroidism. 5. Osteoporosis. CONSULTANTS: Dr. Red Gayle. PROCEDURES: Intramedullary nailing of left hip. BRIEF HISTORY: Please see the history and physical that was done by Dr. Ti Malik. In brief, she is an 88-year-old white female with above problems and a fall at home, sustained injury to the left hip. Further workup revealed left hip nondisplaced intertrochanteric fracture. On the following day, patient had intramedullary nailing done. Postoperative course was complicated by hypotension causing dizziness. She was given fluid boluses with IV crystalloids. She continues to have low blood pressure. Cozaar has been held. She was given a unit of packed RBC with hematocrit 27. After that, hemodynamics were stable. At the time of discharge, patient is stable. LABORATORY DATA: CBC: White cell count 7.2, hematocrit 30, platelets 135,000. Sodium 133, potassium 4.5, chloride 102, BUN 24, creatinine 1.2, glucose 115. LFTs were normal. RADIOLOGY PROCEDURES: 1. Pelvic CT. Acute nondisplaced left intertrochanteric hip fracture. 2. Lumbar spine x-ray. DJD changes with scoliosis. No evidence of bony abnormality. 3. CT head. No evidence of acute intracranial disease. 4. Chest x-ray. No acute disease. DISCHARGE INSTRUCTIONS: The patient was discharged home with the following instructions. 1. Metformin 500 daily. 2. Hold the Cozaar 50 daily until hemodynamics are stable and slowly restart the medicine in the rehab. 3. Crestor 20 mg daily. 4. Synthroid 100 mcg daily. 5. Breo 1 puff in the morning. 6. Colace 200 daily. 7. Tylenol as needed for pain. 8. Follow up in my office in 1 week as well as orthopedic surgeon, Dr. Red Gayle. cc: Estuardo Pappas MD
--- NOTE | 2019-07-20 09:22 | ORTHOPAEDICS PROGRESS NOTE ---
DATE: 07/20/2019 SUBJECTIVE: No acute events overnight. The patient is doing well. Vital signs remain stable. She is ready to go to [facility]. OBJECTIVE: Hematocrit is 30 from yesterday. Vital Signs: Stable. Extremities: Examination of the left lower extremity shows surgical incision to be clean, dry, intact with no fluctuance or drainage. No sign of infection. Thigh is soft and compressible. Minimal pain with log roll of the hip. Neurovascularly intact. ASSESSMENT: An 88-year-old female status post [*] left intertrochanteric femur fracture, postoperative day 4. PLAN: 1. The patient will be weightbearing as tolerated to the left lower extremity. Physical Therapy to mobilize with a rolling walker. 2. Lovenox for DVT prophylaxis. 3. Ice to left lower extremity as needed for pain. 4. Appreciate hospitalist recommendations. 5. Disposition. Okay for the patient to be discharged to [facility] from orthopedic standpoint. She will follow up with me in clinic in 10 to 14 days at scheduled appointment. cc: Estuardo Pappas MD
== END 2019-07-20 10:36 | DRG 481 ==
LOC: SUPCPDRO → ED 19:26 → SUATTDRO 23:12 → 4N 23:12
PROVIDERS: ADMIT Internal Medicine; ATTEND Internal Medicine